=== PATIENT | male | born 1955 | race Caucasian/White ===

== ENCOUNTER 2023-02-07 08:53 | Day surgery (SDC) | payer OTHER ==
[~2023-02-07] VITALS: Ht 180.3 cm; Wt 109.1 kg
--- NOTE | 2023-02-07 11:03 | NUR ---
02/07/23 1103 Veronique Reilly IV REMOVED CANNULA INTACT, PT YECENIA WELL. DENIES PAIN AND NAUSEA
--- NOTE | 2023-02-07 14:21 | NUR ---
02/07/23 1421 Sonia Snider PATIENT STATES HE IS ANXIOUS ABOUT HAVING CATARACT SURGERY. AFTER SPEAKING WITH DR. THURMAN AND DR. BRASHER ABOUT THE PROCEDURE PATIENT AGREES TO GO FORWARD WITH THE CATARACT SURGERY. TETRACAINE WAS PLACE IN RIGHT EYE AT 0948. PLEDGET WAS PLACED IN RIGHT EYE AT 0950.
== END 2023-02-07 11:15 | disposition home or self-care (01) ==
LOC: ORSCSDS 08:53
PROVIDERS: Ophthalmology
PROC: 08RJ3JZ Replacement of Right Lens with Synthetic Substitute, Percutaneous Approach (ICD-10-PCS; principal; 2023-02-07 10:30)
DX: H25.11 Age-related nuclear cataract, right eye (principal); G47.33 Obstructive sleep apnea (adult) (pediatric); F41.9 Anxiety disorder, unspecified
CPT/HCPCS: J2250; J2704; J3010; J3301; J7040; V2632